=== PATIENT | female | born 1940 | race Caucasian/White ===

== ENCOUNTER 2017-11-04 13:02 | Outpatient (CLI) | payer MEDICARE, OTHER ==
--- NOTE | 2017-11-04 18:08 | XRAY Report ---
TWO VIEW LEFT CALCANEUS: 11/04/2017 CLINICAL INDICATION: Acute heel pain. FINDINGS: Frontal and lateral views of the left calcaneus demonstrate no evidence of fracture. Mild degenerative changes are present, with small calcaneal spurs. No radiopaque foreign body is seen in the soft tissues. IMPRESSION: MILD DEGENERATIVE CHANGES. NO EVIDENCE OF FRACTURE. TD: 11/04/2017 18:07
== END 2017-11-04 13:03 | disposition home or self-care (01) ==
LOC: DI 13:02
PROVIDERS: ATTEND Podiatrist
DX: M79.672 Pain in left foot (principal); M77.32 Calcaneal spur, left foot

== ENCOUNTER 2018-06-11 22:52 | Emergency (ER) | payer MEDICARE, OTHER ==
[2018-06-11] MEDS ORDERED: SODIUM CHLORIDE 0.9% 1,000 ML IV ONE (23:13)
[2018-06-11] MEDS ORDERED: NITROGLYCERIN SL 0.4 MG TABLET SL STA (23:13)
[2018-06-11] MEDS ORDERED: ASPIRIN CHEW 81 MG TABLET PO STA (23:13)
--- NOTE | 2018-06-11 23:17 | ED Physician Documentation ---
PD HPI CHEST PAIN - Stated complaint Stated Complaint: CP - Chief complaint Chief Complaint: Cardiac - History obtained from History obtained from: Patient - History of Present Illness Timing - onset: How many hours ago (2) Timing - onset during: Rest Timing - details: Intermittant Pain level max: 7 Pain level now: 3 Quality: Tightness Location: Substernal Associated symptoms: No: Shortness of air, Diaphoresis, Nausea, Vomiting Similar symptoms before: No diagnosis (Reports similar symptoms intermittently over the past 6 weeks, resolving spontaneously each time.) - Additional information Additional information: The patient is a 78-year-old female who presents with bandlike chest pain around her chest, starting about 2 hours prior to arrival. The pain has been intermittent since onset, rated at 7 out of 10 in severity at its worst. Currently she rates it a 3 out of 10 in severity. She denies associated shortness of breath, diaphoresis, nausea or vomiting. She reports history of similar symptoms intermittently over the past 6 weeks, resolving spontaneously each time. She has been evaluated with a satellite project site monitor in the past, which has shown short runs of tachycardia, for which she has been treated with diltiazem. In addition she reports recent symptoms of dysuria for which she started taking nitrofurantoin yesterday. This is from a previous prescription. Review of Systems Constitutional: denies: Fever, Fatigue Ears: denies: Tinnitus/ringing Nose: denies: Congestion Throat: denies: Sore throat Cardiac: reports: Chest pain / pressure. denies: Palpitations Respiratory: denies: Dyspnea, Cough GI: denies: Abdominal Pain, Nausea, Vomiting : denies: Dysuria Skin: denies: Rash Musculoskeletal: denies: Back pain, Extremity swelling Neurologic: denies: Focal weakness, Numbness, Headache PD PAST MEDICAL HISTORY - Past Medical History Cardiovascular: High cholesterol, Arrhythmia Neuro: None Endocrine/Autoimmune: HyPOthyroidism - Present Medications Home Medications: Ambulatory Orders Medication Instructions Recorded Confirmed Estradiol 0.5 mg PO 06/11/18 Levothyroxine [Synthroid] 50 mcg PO QDAC 06/11/18 06/11/18 Nitrofurantoin [Macrobid] 100 mg PO 06/11/18 06/11/18 Oxybutynin [Ditropan] 0 mg PO 06/11/18 Simvastatin 0 mg PO 06/11/18 clonazePAM [Clonazepam] 0 mg PO 06/11/18 dilTIAZem HCl [Diltiazem 24Hr Cd] 180 mg PO 06/11/18 raNITIdine [Zantac] 150 mg PO BID #30 tablet 06/12/18 - Allergies Allergies/Adverse Reactions: Allergies Allergy/AdvReac Type Severity Reaction Status Date / Time ampicillin Allergy Rash Verified 06/11/18 23:01 azithromycin Allergy Rash Verified 06/11/18 23:01 [From Zithromax Z-Ortiz] Sulfa (Sulfonamide Allergy Rash Verified 06/11/18 23:01 Antibiotics) - Living Situation Living Situation: reports: With spouse/s.o. Living Arrangement: reports: At home - Social History Does the pt smoke?: No PD ED PE NORMAL - Vitals Vital signs reviewed: Yes (Initially hypertensive.) - General General: Alert and oriented X 3, Well developed/nourished - HEENT HEENT: Atraumatic, Moist mucous membranes - Neck Neck: No adenopathy, No JVD - Cardiac Cardiac: RRR - Respiratory Respiratory: No respiratory distress, Clear bilaterally - Abdomen Abdomen: Soft, Non tender - Back Back: No CVA TTP - Derm Derm: No rash - Extremities Extremities: No edema, No calf tenderness / cord - Neuro Neuro: Alert and oriented X 3, No motor deficit, Normal speech Results - Vitals Vitals: Oxygen O2 Source Room air - EKG (time done) 22:59 Rate: Rate (enter#) (110) Rhythm: Sinus tachycardia [place]: Posterior hemiblock Intervals: RBBB Ischemia: ST depression (lateral precordial leads, V4-V6.), T wave inversion (V2-V4.) Compare to prior EKG: Old EKG unavailable Computer interpretation: Agree with computer - Labs Labs: Laboratory Tests 06/11/18 06/11/18 06/11/18 23:05 23:05 23:05 WBC 5.6 RBC 4.82 Hgb 14.7 Hct 44.3 MCV 91.9 MCH 30.5 MCHC 33.2 RDW 13.4 Plt Count 173 MPV 8.1 Neut # (Auto) 3.5 Lymph # (Auto) 1.3 L Ashley # (Auto) 0.6 Eos # (Auto) 0.2 Baso # (Auto) 0.0 Absolute Nucleated RBC 0.00 Nucleated RBC % 0.0 Sodium 136 Potassium 3.5 Chloride 101 Carbon Dioxide 26 Anion Gap 9.0 BUN 20 Creatinine 1.3 H Estimated GFR (MDRD) 40 L Glucose 111 H Calcium 9.3 Total Bilirubin 0.7 AST 19 ALT 18 Alkaline Phosphatase 54 Troponin I < 0.04 Total Protein 7.5 Albumin 4.4 Globulin 3.1 Albumin/Globulin Ratio 1.4 Lipase 40 Urine Color Urine Clarity Urine pH Ur Specific [place] Urine Protein Urine Glucose (UA) Urine Ketones Urine Occult Blood Urine Nitrite Urine Bilirubin Urine Urobilinogen Ur Leukocyte Esterase Ur Microscopic Review Urine Culture Comments 06/11/18 23:50 WBC RBC Hgb Hct MCV MCH MCHC RDW Plt Count MPV Neut # (Auto) Lymph # (Auto) Ashley # (Auto) Eos # (Auto) Baso # (Auto) Absolute Nucleated RBC Nucleated RBC % Sodium Potassium Chloride Carbon Dioxide Anion Gap BUN Creatinine Estimated GFR (MDRD) Glucose Calcium Total Bilirubin AST ALT Alkaline Phosphatase Troponin I Total Protein Albumin Globulin Albumin/Globulin Ratio Lipase Urine Color YELLOW Urine Clarity CLEAR Urine pH 7.0 Ur Specific [place] <=1.005 Urine Protein NEGATIVE Urine Glucose (UA) NEGATIVE Urine Ketones NEGATIVE Urine Occult Blood NEGATIVE Urine Nitrite NEGATIVE Urine Bilirubin NEGATIVE Urine Urobilinogen 0.2 (NORMAL) Ur Leukocyte Esterase NEGATIVE Ur Microscopic Review NOT INDICATED Urine Culture Comments NOT INDICATED - Rads (name of study) CXR Radiology: Prelim report reviewed, EMP read contemporaneously, See rad report (Normal single view chest.) PD MEDICAL DECISION MAKING - ED course Complexity details: reviewed results, re-evaluated patient, considered differential, d/w patient, d/w family ED course: The patient's presentation is most consistent with gastroesophageal reflux disease. Cardiac ischemia was considered, and although less likely, it is not entirely ruled out. Electrocardiogram and chest x-ray are unremarkable, as are CBC and chemistry panel including normal troponin. Urinalysis is negative, revealing no evidence of urinary tract infection. Treatment in the emergency department included administration of sublingual nitroglycerin and 4 baby aspirin. This had no impact on the patient's symptoms. GI cocktail was administered, and she had almost immediate complete relief of her symptoms. I discussed with her and her the likely diagnosis, symptomatic treatment and outpatient follow-up, as well as potentially worrisome signs or symptoms that should prompt reevaluation in the emergency department. She is being discharged with prescription for ranitidine. I discussed with her that it may be prudent to undergo an outpatient cardiac stress test. Departure - Departure Disposition: 01 Home, Self Care Clinical Impression: Gastroesophageal reflux disease Qualifiers: Esophagitis presence: esophagitis presence not specified Qualified Code(s): K21.9 - Gastro-esophageal reflux disease without esophagitis Condition: Stable Instructions: ED GERD Follow-Up: Srinivasa Rocha MD [Primary Care Provider] - Prescriptions: raNITIdine [Zantac] 150 mg PO BID #30 tablet Comments: Your pain tonight was more likely than not caused by gastroesophageal reflux. I do not think it was caused by your heart, but cannot be 100% certain. Your urinalysis is negative, showing no sign of a urinary tract infection. You can discontinue nitrofurantoin. You can take ranitidine twice daily as prescribed to help decrease stomach acid. If you develop recurrent symptoms you can take liquid antacid, such as Maalox or Mylanta. If symptoms persist despite liquid antacid you should return to the emergency department. Follow-up with your primary physician within 2 weeks. Call to schedule an appointment. Discharge Date/Time: 06/12/18 01:29
[2018-06-11 23:26] LABS: BASOPHILS % (AUTO) 0.8 %; EOSINOPHILS # (AUTO) 0.2 10^3/uL (0.0-0.7); EOSINOPHILS % (AUTO) 3.1 %; HGB - HEMOGLOBIN 14.7 g/dL (12.0-16.0); LYMPHOCYTES # (AUTO) 1.3 10^3/uL (1.5-3.5); LYMPHOCYTES % (AUTO) 23.2 %; MEAN CORPUSCULAR HEMOGLOBIN 30.5 pg (27.0-31.0); MEAN CORPUSCULAR HGB CONC 33.2 g/dL (32.0-36.0); MEAN CORPUSCULAR VOLUME 91.9 fL (81.0-99.0); MEAN PLATELET VOLUME 8.1 fL (7.9-10.8); MONOCYTES # (AUTO) 0.6 10^3/uL (0.0-1.0); MONOCYTES % (AUTO) 10.1 %; NEUTROPHILS # (AUTO) 3.5 10^3/uL (1.5-6.6); NEUTROPHILS % (AUTO) 62.8 %; PLT - PLATELET COUNT 173 10^3/uL (130-450); RED BLOOD COUNT 4.82 10^6/uL (4.20-5.40); RED CELL DISTRIBUTION WIDTH 13.4 % (12.0-15.0); WHITE BLOOD COUNT 5.6 x10^3/uL (4.8-10.8)
[2018-06-11 23:39] LABS: ALBUMIN 4.4 g/dL (3.2-5.5); ALBUMIN/GLOBULIN RATIO 1.4 (1.0-2.2); BILIRUBIN,TOTAL 0.7 mg/dL (0.2-1.0); CALCIUM 9.3 mg/dL (8.5-10.3); CREATININE 1.3 mg/dL (0.4-1.0); TOTAL PROTEIN 7.5 g/dL (6.7-8.2)
--- NOTE | 2018-06-11 23:57 | XRAY Report ---
Reason: chest pain Procedure Date: 06/11/2018 Accession Number: [id number] / [id number] Procedure: XR - Chest 1 View X-Ray CPT Code: 60417 FULL RESULT: EXAM: CHEST RADIOGRAPHY EXAM DATE: 06/11/2018 11:30 PM. CLINICAL HISTORY: Chest pain. COMPARISON: 11/18/2007 9:00 PM. TECHNIQUE: 1 view. FINDINGS: Lungs/Pleura: No focal opacities evident. No pleural effusion. No pneumothorax. Mediastinum: Within exam limitations, the cardiomediastinal contour is normal. Other: None. IMPRESSION: Normal single view chest. RADIA
[2018-06-12 00:02] LABS: BILIRUBIN,URINE NEGATIVE (NEGATIVE); CLARITY,URINE CLEAR (CLEAR); GLUCOSE, URINE (UA) NEGATIVE (NEGATIVE); KETONES,URINE (UA) NEGATIVE (NEGATIVE); LEUKOCYTE ESTERASE, URINE NEGATIVE (NEGATIVE); NITRITE,URINE NEGATIVE (NEGATIVE); OCCULT BLOOD,URINE NEGATIVE (NEGATIVE); PROTEIN,URINE NEGATIVE (NEGATIVE); UROBILINOGEN,URINE 0.2 (NORMAL) E.U./dL (NORMAL)
[2018-06-12] MEDS ORDERED: MAG HYDROX/AL HYDROX/SIMETH 30 ML UDC PO STA (00:14)
[2018-06-12] MEDS ORDERED: LIDOCAINE VISCOUS 2% 15 ML UDC MM STA (00:14)
[2018-06-12] MEDS ORDERED: PHENobarb/HYOSCY/ATROPINE/SCOP 5 ML UDC PO STA (00:14)
[2018-06-12 00:42] VITALS: BP 144/77
== END 2018-06-12 01:29 | disposition home or self-care (01) ==
LOC: ED 22:52
DX: K21.9 Gastro-esophageal reflux disease without esophagitis (principal); R00.0 Tachycardia, unspecified; I45.10 Unspecified right bundle-branch block
CPT/HCPCS: 36415; 71045; 80053; 81003; 83690; 84484; 85025; 93005; 99283; 99284; A9270; 81001; 87086

== ENCOUNTER 2019-03-19 09:25 | Outpatient (CLI) | payer MEDICARE ==
[2019-03-19 09:48] LABS: BASOPHILS % (AUTO) 0.9 %; EOSINOPHILS # (AUTO) 0.2 10^3/uL (0.0-0.7); EOSINOPHILS % (AUTO) 4.5 %; LYMPHOCYTES # (AUTO) 1.2 10^3/uL (1.5-3.5); LYMPHOCYTES % (AUTO) 26.6 %; MEAN CORPUSCULAR HEMOGLOBIN 30.7 pg (27.0-31.0); MEAN CORPUSCULAR HGB CONC 33.4 g/dL (32.0-36.0); MEAN PLATELET VOLUME 9.7 fL (7.9-10.8); MONOCYTES # (AUTO) 0.4 10^3/uL (0.0-1.0); MONOCYTES % (AUTO) 8.9 %; NEUTROPHILS # (AUTO) 2.7 10^3/uL (1.5-6.6); NEUTROPHILS % (AUTO) 58.9 %; PLT - PLATELET COUNT 201 10^3/uL (130-450); RED BLOOD COUNT 4.88 10^6/uL (4.20-5.40); RED CELL DISTRIBUTION WIDTH 12.6 % (12.0-15.0); WHITE BLOOD COUNT 4.6 x10^3/uL (4.8-10.8)
[2019-03-19 10:26] LABS: ALBUMIN 4.4 g/dL (3.2-5.5); ALBUMIN/GLOBULIN RATIO 1.5 (1.0-2.2); ALKALINE PHOSPHATASE 51 IU/L (42-121); ALT ALANINE AMINOTRANSFERASE 19 IU/L (10-60); AST ASPARTATE AMINOTRANSFERASE 21 IU/L (10-42); BILIRUBIN,TOTAL 0.8 mg/dL (0.2-1.0); BUN - BLOOD UREA NITROGEN 18 mg/dL (6-20); CALCIUM 9.6 mg/dL (8.5-10.3); CARBON DIOXIDE - CO2 27 mmol/L (21-32); CHLORIDE 102 mmol/L (101-111); CHOL/HDL RATIO 2.8 (<4.4); CHOLESTEROL 249 mg/dL; CREATININE 1.1 mg/dL (0.4-1.0); GFR - MDRD 48 (>89); GLUCOSE 99 mg/dL (70-100); HDL CHOLESTEROL 90 mg/dL; LDL CHOLESTEROL,CALCULATED 139 mg/dL; LDL/HDL RATIO 1.5 (<4.4); SODIUM 139 mmol/L (135-145); TOTAL PROTEIN 7.4 g/dL (6.7-8.2); VLDL CHOLESTEROL 20 mg/dL
[2019-03-19 11:52] LABS: THYROID STIMULATING HORMONE 2.29 uIU/mL (0.34-5.60)
[2019-03-19 11:54] LABS: FREE T4 (FREE THYROXINE) 0.94 ng/dL (0.58-1.64)
[2019-03-20 11:17] LABS: HEPATITIS C ANTIBODY NON-REACTIVE (NON-REACTIVE)
== END 2019-03-19 09:26 | disposition home or self-care (01) ==
LOC: LAB 09:25
PROVIDERS: ATTEND Family Medicine
DX: E03.9 Hypothyroidism, unspecified (principal); D72.819 Decreased white blood cell count, unspecified; R00.2 Palpitations; I10 Essential (primary) hypertension; E78.5 Hyperlipidemia, unspecified; Z20.5 Contact with and (suspected) exposure to viral hepatitis
CPT/HCPCS: 36415; 80053; 80061; 83721; 84439; 84443; 84481; 85025; 86803

== ENCOUNTER 2019-03-21 16:24 | Outpatient (CLI) | payer MEDICARE ==
--- NOTE | 2019-03-22 13:46 | Mammography Report ---
Reason: SCREENING MAMMO Procedure Date: 03/21/2019 Accession Number: [id number] / [id number] Procedure: JORDON - Screening Mammo w/Adolfo CPT Code: FULL RESULT: EXAM: Screening Mammo w/Adolfo DATE: 03/21/2019 5:42 PM CLINICAL HISTORY: Routine screening TECHNIQUE: (B) - Bilateral CC and MLO views were obtained. COMPARISON: 03/08/2018, 05/19/2017, 05/17/2016, 03/24/2015, 02/22/2014 and 02/15/2013 PARENCHYMAL PATTERN: (A) - The breasts demonstrate scattered fibroglandular densities bilaterally. FINDINGS: No significant interval change on the right. There are no suspicious masses, calcifications, or areas of distortion. In the left lateral breast on the CC view a nodular density appears to have increased in size over series of mammograms since 2013. It is not definitely appreciated on the MLO projection. Further evaluation by spot compression and true lateral views and possible ultrasound is suggested. No suspicious microcalcifications or architectural distortion on the left. IMPRESSION: Incomplete examination. BI-RADS category 0. Needs additional evaluation left breast. Negative right breast. RECOMMENDATION: (ADDMU) - Additional views using both Mammography and Ultrasound recommended. Left breast BI-RADS CATEGORY: (0) - Incomplete Examination - need additional evaluation. STANDARD QUALIFYING STATEMENTS: 1. This examination was not reviewed with the aid of Computer-Aided Detection (CAD). 2. A negative or benign imaging report should not preclude biopsy if clinically suspicious findings are present. 3. Dense breasts may obscure an underlying neoplasm. 4. This examination was reviewed with the aid of 3D breast imaging (tomosynthesis).
== END 2019-03-21 16:25 | disposition home or self-care (01) ==
LOC: DI 16:24
PROVIDERS: ATTEND Family Medicine
DX: Z12.31 Encounter for screening mammogram for malignant neoplasm of breast (principal)
CPT/HCPCS: 77063; 77067

== ENCOUNTER 2019-03-28 12:35 | Outpatient (CLI) | payer MEDICARE ==
--- NOTE | 2019-03-28 14:12 | Mammography Report ---
Reason: ABN MAMMO - LT SPEC VIEWS Procedure Date: 03/28/2019 Accession Number: [id number] / [id number] Procedure: JORDON - Diag Special Views Dig LT CPT Code: FULL RESULT: EXAM: Diag Special Views Dig LT DATE: 03/28/2019 1:14 PM CLINICAL HISTORY: Diagnostic examination. The patient is recalled from screening for an increasing nodule in the left breast. TECHNIQUE: (L) - Left left CC, left spot CC, left ML images are obtained. Focused left breast ultrasound is performed. COMPARISON: 03/21/2019 through 02/15/2013. PARENCHYMAL PATTERN: (A) - The breast(s) demonstrate(s) scattered fibroglandular densities. FINDINGS: Increasing focal asymmetry is localized in the MLO projection on tomographic image 10 and confirmed by spot view. Focused left breast ultrasound reveals a lobulated wider than tall hypoechoic solid mass which measures 1.0 x 0.6 cm in the left breast at the 3:00 position 5 cm from the nipple, corresponding to the mammographic finding which has been slowly increasing in size over time. IMPRESSION: Suspicious findings. BI-RADS category 4. 4A RECOMMENDATION: (BIOPSY) - left breast ultrasound-guided biopsy. BI-RADS CATEGORY: (4) - Suspicious. STANDARD QUALIFYING STATEMENTS: 1. This examination was not reviewed with the aid of Computer-Aided Detection (CAD). 2. A negative or benign imaging report should not preclude biopsy if clinically suspicious findings are present. 3. Dense breasts may obscure an underlying neoplasm. 4. This examination was reviewed with the aid of 3D breast imaging (tomosynthesis).
== END 2019-03-28 12:36 | disposition home or self-care (01) ==
LOC: DI 12:35
PROVIDERS: ATTEND Family Medicine
DX: N63.20 Unspecified lump in the left breast, unspecified quadrant (principal); R92.8 Other abnormal and inconclusive findings on diagnostic imaging of breast
CPT/HCPCS: 76642

== ENCOUNTER 2019-04-04 11:05 | Outpatient (CLI) | payer MEDICARE ==
[2019-04-04] MEDS ORDERED: BUFFERED LIDOCAINE 10 ML SYRINGE ONE (11:15)
[2019-04-04] MEDS ORDERED: BUPIVACAINE 0.5%-EPI 1:200000 PF 10 ML VIAL ONE (11:15)
[2019-04-04] MEDS ORDERED: BUFFERED LIDOCAINE 10 ML SYRINGE IU ONE (14:14)
[2019-04-04] MEDS ORDERED: BUPIVACAINE 0.5%-EPI 1:200000 PF 10 ML VIAL SUBQ ONE (14:14)
--- NOTE | 2019-04-04 16:01 | Ultrasound Report ---
Reason: L BREAST NODULE Procedure Date: 04/04/2019 Accession Number: [id number] / [id number] Procedure: US - Biopsy Breast Core CPT Code: FULL RESULT: PROCEDURE: Ultrasound-guided needle biopsy left breast mass. CLINICAL DATA: Solid left breast mass. TECHNIQUE: Informed consent was obtained. Indication sterile technique and local anesthetic, an ultrasound-guided core needle biopsy was performed in the usual manner of a slightly lobulated 5 x 6 x 9 mm diameter wider than tall mass in the 5:00 position left breast nipple +5 cm. A 12-gauge vacuum-assisted device was used to obtain 3 specimens. A specialized biopsy marker clip was placed into the biopsy cavity under ultrasound guidance. The patient was taken to separate mammography machine and a two-view digital mammography was performed to verify the clip placement and any complications. This mammogram will be reported separately. Satisfactory clip placement. The wound was dressed and ice applied. The patient was observed for approximately 15 minutes, then was discharged from diagnostic imaging Department in good condition following instructions on wound care and obtaining biopsy results. The patient is scheduled to receive the biopsy results from the referring physician. The tissue was sent for histologic analysis. IMPRESSION: Technically successful real-time ultrasound-guided vacuum-assisted core needle biopsy of left breast mass as described above. AN ADDENDUM WILL REMAIN TO THIS REPORT WHEN PATHOLOGY IS REVIEWED TO ESTABLISH CONCORDANCE.
--- NOTE | 2019-04-04 16:04 | Mammography Report ---
Reason: S/P US GUIDED BX Procedure Date: 04/04/2019 Accession Number: [id number] / [id number] Procedure: JORDON - Diag Special Views Dig LT CPT Code: FULL RESULT: EXAM: Diag Special Views Dig LT DATE: 04/04/2019 12:46 PM CLINICAL HISTORY: This is a post biopsy unilateral left mammogram to document clip placement. TECHNIQUE: (L) - Left. CC and MLO views were obtained. COMPARISON: Ultrasound-guided left breast biopsy 04/04/2019, diagnostic mammogram and ultrasound 03/28/2019 PARENCHYMAL PATTERN: (A) - The breasts demonstrate scattered fibroglandular densities bilaterally. FINDINGS: Following core needle biopsy, there is satisfactory clip placement in the lower outer quadrant. A separate report describing ultrasound-guided needle biopsy. IMPRESSION: Incomplete examination. BI-RADS category 0. RECOMMENDATION: (CLIN) - Clinical follow-up for symptoms is recommended. See separate ultrasound-guided left breast biopsy report. Addendum will be made to that report following review of histologic findings. BI-RADS CATEGORY: (0) - Incomplete Examination - need additional evaluation. STANDARD QUALIFYING STATEMENTS: 1. This examination was not reviewed with the aid of Computer-Aided Detection (CAD). 2. A negative or benign imaging report should not preclude biopsy if clinically suspicious findings are present. 3. Dense breasts may obscure an underlying neoplasm. 4. This examination was reviewed without the aid of 3D breast imaging (tomosynthesis).
== END 2019-04-04 11:06 | disposition home or self-care (01) ==
LOC: DI 11:05
PROVIDERS: ATTEND Family Medicine
DX: D05.12 Intraductal carcinoma in situ of left breast (principal)
CPT/HCPCS: 19083

== ENCOUNTER 2019-06-10 14:30 | Emergency (ER) | payer MEDICARE ==
[2019-06-10 14:45] VITALS: BP 142/69
[2019-06-10 15:18] LABS: BILIRUBIN,URINE NEGATIVE (NEGATIVE); GLUCOSE, URINE (UA) NEGATIVE (NEGATIVE); KETONES,URINE (UA) NEGATIVE (NEGATIVE); LEUKOCYTE ESTERASE, URINE SMALL (NEGATIVE); NITRITE,URINE NEGATIVE (NEGATIVE); OCCULT BLOOD,URINE LARGE (NEGATIVE); PH,URINE 6.5 PH (5.0-7.5); PROTEIN,URINE NEGATIVE (NEGATIVE); UROBILINOGEN,URINE 0.2 (NORMAL) E.U./dL (NORMAL)
--- NOTE | 2019-06-10 15:21 | ED Physician Documentation ---
PD HPI FEMALE - Stated complaint Stated Complaint: FEMALE - Chief complaint Chief Complaint: UTI - History obtained from History obtained from: Patient - History of Present Illness Timing - onset: Today Timing - duration: Days (1) Timing - details: Abrupt onset, Still present Associated symptoms: Dysuria, Hematuria. No: Fever, Vaginal discharge, Genital sore/lesion Similar symptoms before: Diagnosis (uti) Review of Systems GI: denies: Abdominal Pain, Nausea, Vomiting : reports: Dysuria, Hematuria. denies: Discharge Musculoskeletal: denies: Back pain PD PAST MEDICAL HISTORY - Past Medical History Past Medical History: Yes Cardiovascular: High cholesterol, Arrhythmia Neuro: None Endocrine/Autoimmune: HyPOthyroidism - Past Surgical History Past Surgical History: No - Present Medications Home Medications: Ambulatory Orders Medication Instructions Recorded Confirmed Estradiol 0.5 mg PO 06/11/18 Levothyroxine [Synthroid] 50 mcg PO QDAC 06/11/18 06/11/18 Nitrofurantoin [Macrobid] 100 mg PO 06/11/18 06/11/18 Oxybutynin [Ditropan] 0 mg PO 06/11/18 Simvastatin 0 mg PO 06/11/18 clonazePAM [Clonazepam] 0 mg PO 06/11/18 dilTIAZem HCl [Diltiazem 24Hr Cd] 180 mg PO 06/11/18 raNITIdine [Zantac] 150 mg PO BID #30 tablet 06/12/18 Cephalexin [Keflex] 500 mg PO Q6H #20 capsule 06/10/19 Phenazopyridine [Pyridium] 100 mg PO TID #10 tablet 06/10/19 - Allergies Allergies/Adverse Reactions: Allergies Allergy/AdvReac Type Severity Reaction Status Date / Time ampicillin Allergy Rash Verified 06/11/18 23:01 azithromycin Allergy Rash Verified 06/11/18 23:01 [From Zithromax Z-Ortiz] latex Allergy Rash Verified 06/10/19 14:45 Sulfa (Sulfonamide Allergy Rash Verified 06/11/18 23:01 Antibiotics) - Social History Does the pt smoke?: No Smoking Status: Never smoker Does the pt drink ETOH?: No Does the pt have substance abuse?: No - Immunizations Immunizations are current?: Yes - POLST Patient has POLST: No PD ED PE NORMAL - Vitals Vital signs reviewed: Yes - General General: Alert and oriented X 3, No acute distress, Well developed/nourished - Abdomen Abdomen: Soft, Non tender - Back Back: No CVA TTP - Derm Derm: Normal color, Warm and dry - Neuro Neuro: Alert and oriented X 3, No motor deficit, Normal speech Results - Vitals Vitals: Vital Signs - 24 hr 06/10/19 14:42 Temperature 36.5 C Heart Rate 78 Respiratory 16 Rate Blood Pressure 142/69 H O2 Saturation 99 Oxygen O2 Source Room air - Labs Labs: Laboratory Tests 06/10/19 14:40 Urine Color YELLOW Urine Clarity CLEAR Urine pH 6.5 Ur Specific [place] <=1.005 Urine Protein NEGATIVE Urine Glucose (UA) NEGATIVE Urine Ketones NEGATIVE Urine Occult Blood LARGE H Urine Nitrite NEGATIVE Urine Bilirubin NEGATIVE Urine Urobilinogen 0.2 (NORMAL) Ur Leukocyte Esterase SMALL H Urine RBC 0-5 Urine WBC >25 H Ur Squamous Epith Cells NONE SEEN Urine Bacteria None Seen Urine Culture Comments INDICATED PD MEDICAL DECISION MAKING - ED course Complexity details: considered differential (symptoms and UA c/w UTI. ), d/w patient Departure - Departure Disposition: Home, Self Care Clinical Impression: Dysuria UTI (urinary tract infection) Qualifiers: Urinary tract infection type: acute cystitis Hematuria presence: with hematuria Qualified Code(s): N30.01 - Acute cystitis with hematuria Condition: Stable Record reviewed to determine appropriate education?: Yes Instructions: ED UTI Cystitis Female Follow-Up: Mark Noland MD [Primary Care Provider] - Prescriptions: Cephalexin [Keflex] 500 mg PO Q6H #20 capsule Phenazopyridine [Pyridium] 100 mg PO TID #10 tablet Comments: Stay well-hydrated. Tylenol or ibuprofen if needed for discomfort. Phenazopyridine can be used for decrease in urinary discomfort. It will turn your urine orange so not to worry. Cephalexin antibiotic 3 times a day as directed. Recheck if not improving well over the next 2 to 3 days. Return if increasing symptoms, flank pain, fever, vomiting or other concerns. Discharge Date/Time: 06/10/19 15:59
[2019-06-10 15:27] LABS: BACTERIA,URINE None Seen /HPF (None Seen); CLARITY,URINE CLEAR (CLEAR); RBC,URINE 0-5 /HPF (0-5); SQUAMOUS EPITHELIAL CELL,UR NONE SEEN (<= Few)
[2019-06-10] MEDS ORDERED: cephALEXin 250 MG CAPSULE PO STA (15:45)
[2019-06-10] MEDS ORDERED: PHENAZOPYRIDINE 100 MG TABLET PO STA (15:45)
== END 2019-06-10 15:59 | disposition home or self-care (01) ==
LOC: ED 14:30
DX: N30.01 Acute cystitis with hematuria (principal)
CPT/HCPCS: 81001; 87086; 99282; 99283; A9270

== ENCOUNTER 2019-08-28 14:17 | Outpatient (CLI) | payer MEDICARE ==
--- NOTE | 2019-09-04 11:09 | DEXA Report ---
Reason: POSTMENOPAUSAL Procedure Date: 08/28/2019 Accession Number: [id number] / [id number] Procedure: DEX - Dexa Spine and/or Hip CPT Code: Final Report FULL RESULT: EXAM: Dexa Spine and/or Hip DATE: 08/28/2019 2:53 PM CLINICAL HISTORY: POSTMENOPAUSAL TECHNIQUE: Dual energy x-ray absorptiometry (DXA) was performed on a [employer] System. Regions measured are the AP Spine, femoral neck, and if needed forearm. COMPARISON: None. In accordance with the International Society for Clinical Densitometry (ISCD) guidelines, data from previous exams may be reanalyzed using current recommendations and techniques. This is done to allow a more accurate basis for comparison with the current study. FINDINGS: The data for the lumbar spine is as follows: BMD (g/cm/cm) T-SCORE Z-SCORE REGION L1 0.826 -2.5 -1.0 L2 0.997 -1.7 -0.2 L3 1.253 0.4 2.0 L4 1.190 -0.1 1.5 TOTAL 1.078 -0.8 0.7 NOTE: All evaluable vertebrae are used for classification The data for the hip is as follows: BMD (g/cm/cm) T-SCORE Z-SCORE REGION Neck 0.885 -1.1 0.8 TOTAL 1.020 0.1 1.8 NOTE: The femoral neck or total proximal femur, whichever is lowest, is used for classification. IMPRESSION: THE WHO CLASSIFICATION BASED ON THE INTERNATIONAL REFERENCE STANDARD IS OSTEOPENIA. THE FRACTURE RISK IS INCREASED. RECOMMENDATION: Patients with diagnosis of osteoporosis or osteopenia should have regular bone mineral density assessment. For those eligible for Medicare, routine testing is allowed once every 2 years. Testing frequency can be increased for patients who have rapidly progressing disease or for those who are receiving medical therapy to restore bone mass. COMMENT: World Health Organization (WHO) definitions for osteoporosis and osteopenia: NORMAL BMD: T-score at -1.0 or higher, fracture risk is low OSTEOPENIA BMD: T-score between -1.0 and -2.5, fracture risk is increased. OSTEOPOROSIS BMD: T-score at -2.5 or lower, fracture risk is high. National Osteoporosis Foundation recommends: 1. Obtain adequate dietary calcium (at least 1200 mg per day) and vitamin D (400-800 international units per day). 2. Participate, as appropriate, in regular weightbearing and muscle-strengthening exercise. 3. Avoid tobacco use and reduce alcohol and caffeine intake. 4. For more detailed information see the website at www.NOF.org.
== END 2019-08-28 14:18 | disposition home or self-care (01) ==
LOC: DI 14:17
PROVIDERS: ATTEND Internal Medicine
DX: M85.88 Other specified disorders of bone density and structure, other site (principal); C50.919 Malignant neoplasm of unspecified site of unspecified female breast
CPT/HCPCS: 77080

== ENCOUNTER 2019-12-05 14:01 | Outpatient (CLI) | payer MEDICARE ==
[2019-12-05 14:15] LABS: BASOPHILS % (AUTO) 0.4 %; EOSINOPHILS % (AUTO) 0.9 %; HGB - HEMOGLOBIN 13.6 g/dL (12.0-16.0); LYMPHOCYTES # (AUTO) 0.9 10^3/uL (1.5-3.5); MEAN CORPUSCULAR HEMOGLOBIN 30.1 pg (27.0-31.0); MEAN CORPUSCULAR HGB CONC 32.4 g/dL (32.0-36.0); MEAN CORPUSCULAR VOLUME 92.9 fL (81.0-99.0); MEAN PLATELET VOLUME 9.3 fL (7.9-10.8); MONOCYTES # (AUTO) 0.6 10^3/uL (0.0-1.0); NEUTROPHILS # (AUTO) 3.2 10^3/uL (1.5-6.6); NEUTROPHILS % (AUTO) 67.5 %; PLT - PLATELET COUNT 179 10^3/uL (130-450); RED BLOOD COUNT 4.52 10^6/uL (4.20-5.40); RED CELL DISTRIBUTION WIDTH 12.8 % (12.0-15.0); WHITE BLOOD COUNT 4.7 x10^3/uL (4.8-10.8)
[2019-12-05 14:20] LABS: BILIRUBIN,URINE NEGATIVE (NEGATIVE); GLUCOSE, URINE (UA) NEGATIVE (NEGATIVE); KETONES,URINE (UA) NEGATIVE (NEGATIVE); LEUKOCYTE ESTERASE, URINE SMALL (NEGATIVE); NITRITE,URINE NEGATIVE (NEGATIVE); OCCULT BLOOD,URINE TRACE-INTA (NEGATIVE); PH,URINE 6.5 PH (5.0-7.5); PROTEIN,URINE NEGATIVE (NEGATIVE); UROBILINOGEN,URINE 0.2 (NORMAL) E.U./dL (NORMAL)
[2019-12-05 14:26] LABS: CALCIUM 9.1 mg/dL (8.5-10.3)
[2019-12-05 14:31] LABS: CLARITY,URINE HAZY (CLEAR)
[2019-12-05 14:32] LABS: BACTERIA,URINE Few /HPF (None Seen); SQUAMOUS EPITHELIAL CELL,UR RARE Squamous (<= Few); WBC CLUMPS,URINE PRESENT
== END 2019-12-05 14:02 | disposition home or self-care (01) ==
LOC: LAB 14:01
PROVIDERS: ATTEND Internal Medicine
DX: R53.83 Other fatigue (principal)
CPT/HCPCS: 36415; 80048; 81001; 81003; 85025; 87077; 87086; 87181

== ENCOUNTER 2020-01-11 12:27 | Outpatient (CLI) | payer MEDICARE ==
--- NOTE | 2020-01-15 14:56 | Mammography Report ---
BILATERAL DIGITAL DIAGNOSTIC MAMMOGRAM 3D/2D: 01/11/2020 CLINICAL: Patient returns for a 6 month follow up of the left breast, due for bilateral imaging. Comparison is made to exams dated: 03/21/2019 mammogram, 01/22/2011 mammogram - [facility], 05/19/2017 mammogram - [facility], and 03/08/2018 mammogram - [facility] . There are scattered fibroglandular elements in both breasts. There are new surgical clips and scar marker in the left breast at 2 and 3 o'clock that correlate wit h surgical sites. No significant masses, calcifications, or other findings are seen in either breast. IMPRESSION: There is no mammographic evidence of malignancy. Return to annual mammogram screening schedule is rec ommended. Findings and recommendations were conveyed to the patient at time of exam. This exam was interpreted at Station ID: [id number]. NOTE: For mammograms, a report in lay terms will be sent to the patient. Approximately 15% of breast malignancies will not be visualized mammographically. In the management of a palpable breast mass, a negative mammogram must not discourage biopsy of a clinically suspicious lesion. Electronically Signed By: Marley morton/:01/11/2020 14:11:30 ACR BI-RADS Category 2: Benign Finding(s) 3342F PARENCHYMAL PATTERN: (A) - The breast(s) demonstrate(s) scattered fibroglandular densities. BI-RADS CATEGORY: (2) - 2 Mammogram [id number] return to screening LATERALITY: (B)
== END 2020-01-11 12:28 | disposition home or self-care (01) ==
LOC: DI 12:27
PROVIDERS: ATTEND Internal Medicine
DX: C50.912 Malignant neoplasm of unspecified site of left female breast (principal)
CPT/HCPCS: 77066